=== PATIENT | female | born 1975 | race African-American/Black ===

== ENCOUNTER 2019-04-26 14:37 | Emergency (ER) | payer SELFPAY ==
[~2019-04-26] VITALS: Ht 167.6 cm; Wt 92.0 kg
[2019-04-26] MEDS ORDERED: CLARITIN10 M2 PO (14:52)
[2019-04-26] MEDS ORDERED: AMOX/K CLAV875 M1 PO (15:04)
[2019-04-26] MEDS ORDERED: ALLEGRA-D 2424 HOUR PO (15:04)
[2019-04-26 15:15] VITALS: BP 148/81
== END 2019-04-26 15:15 | disposition home or self-care (01) | DRG 153 ==
LOC: ED 14:37
DX: J01.90 Acute sinusitis, unspecified (principal)

== ENCOUNTER 2021-04-23 22:31 | Emergency (ER) | payer MEDICAID ==
[~2021-04-23] VITALS: Ht 167.6 cm; Wt 90.0 kg
[~2021-04-23 22:31] MED LIST: ALLEGRA-D 2424 HOUR PO; AMOX/K CLAV875 M1 PO; CLARITIN10 M2 PO
[2021-04-24] MEDS ORDERED: IBUPROFEN600 MG PO (00:14)
[2021-04-24] MEDS ORDERED: ULTRAM50 MG PO (00:14)
[2021-04-24 00:18] VITALS: BP 152/78
== END 2021-04-24 00:47 | disposition home or self-care (01) ==
LOC: ED 22:31
DX: M25.561 Pain in right knee (principal)